=== PATIENT | female | born 1975 | race Caucasian/White ===

== ENCOUNTER 2021-09-26 19:31 | Emergency (ER) | payer OTHER ==
[~2021-09-26] VITALS: Ht 160 cm; Wt 86.2 kg
[2021-09-26] MEDS ORDERED: BIRTH CONTROL (19:42)
[2021-09-26] MEDS ORDERED: BUTALB-APAP-CA1 EACH PO (21:48)
[2021-09-26 22:07] VITALS: BP 139/91
== END 2021-09-26 22:08 | disposition home or self-care (01) ==
LOC: M.ERS 19:31
DX: R51.9 Headache, unspecified (principal); Z90.49 Acquired absence of other specified parts of digestive tract; Z98.890 Other specified postprocedural states